=== PATIENT | female | born 2000 | race African-American/Black ===

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

== ENCOUNTER → 2019-09-13 | Outpatient (REF) | payer MEDICAID ==
[~2019-09-13] MED LIST: ADVI200T PO
[2019-09-13 14:14] LABS: HEMATOCRIT 32.8 % (36.0-47.0); HEMOGLOBIN 10.8 g/dl (12.0-15.5); MEAN CORPUSCULAR HEMOGLOBIN 28.9 pg (27.0-33.0); MEAN CORPUSCULAR HGB CONC 32.9 g/dl (32.0-36.5); MEAN CORPUSCULAR VOLUME 87.7 fl (80.0-96.0); PLATELET COUNT, AUTOMATED 311 10^3/uL (150-450); RED BLOOD COUNT 3.74 10^6/uL (4.00-5.40); WHITE BLOOD COUNT 12.3 10^3/uL (4.0-10.0)
[2019-09-13 15:07] LABS: CHLAMYDIA DNA AMPLIFICATION NEGATIVE (NEGATIVE); GC DNA AMPLIFICATION NEGATIVE (NEGATIVE)
[2019-09-13 15:35] LABS: HEPATITIS B SURFACE ANTIGEN NEGATIVE (NEGATIVE); HEPATITIS C VIRUS ABY INDEX 0.1 INDEX (<0.8); HIV 1&2 SCREEN CENTAUR NEGATIVE (NEGATIVE); RUBELLA IgG QUALITATIVE IMMUNE (IMMUNE)
== END ==
LOC: M PLALAB 11:03
PROVIDERS: ATTEND Advanced Practice Midwife
DX: Z34.02 Encounter for supervision of normal first pregnancy, second trimester (principal)

== ENCOUNTER → 2019-10-08 | Outpatient (CLI) | payer MEDICAID ==
--- NOTE | 2019-10-09 09:40 | REP ---
REASON: anatomy. Multiple ultrasonographic images of the gravid uterus show a single living intrauterine gestation in the cephalic presentation. Doppler interrogation of the heart shows a heart rate of 133 beats per minute. The placenta is anterior and not low lying. The subjective amniotic fluid volume is within normal limits. The cervix measures 3.6 cm in length and is closed. Evaluation of the maternal adnexal spaces shows no abnormalities. BPD 6.8 cm = 27 weeks 1 day HC 25.5 cm = 27 weeks 5 days AC 21.6 cm = 26 weeks 0 days FL 5.0 cm = 27 weeks 0 days The estimated weight is 963 grams, which is at the 41st percentile for a 26 week 5 day gestational age. The calculated amniotic fluid index is 14.0 with an expected range 9.6 - 22.5. The anatomical structures seen as unremarkable are as follows: Thalami, cavum septum pellucidum, cerebellum, cisterna magna, cerebral ventricles, kidneys, urinary bladder, upper and lower extremities, three-vessel umbilical cord, cord insertion, stomach, and right ventricular outflow tract. The four-chamber heart, left ventricular outflow tract, and spine were suboptimally visualized. IMPRESSION: Single living intrauterine gestation as described above, with an estimated gestational age of 26 weeks 5 days via composite criteria and an estimated date of delivery of 26 weeks 5 days via composite criteria with an estimated date of delivery of 01/09/2020 by today's exam. No anomalies were detected, however, I recommend a followup examination to visualized those structures not well seen today, as described above.
== END ==
LOC: M WHC 14:00
PROVIDERS: ATTEND Advanced Practice Midwife
DX: Z36.89 Encounter for other specified antenatal screening (principal); Z3A.26 26 weeks gestation of pregnancy

== ENCOUNTER → 2019-10-11 | Outpatient (REF) | payer MEDICAID ==
[2019-10-11 15:31] LABS: HEMOGLOBIN 10.9 g/dl (12.0-15.5); MEAN CORPUSCULAR VOLUME 87.8 fl (80.0-96.0); PLATELET COUNT, AUTOMATED 315 10^3/uL (150-450); RED BLOOD COUNT 3.76 10^6/uL (4.00-5.40)
== END ==
LOC: M PLALAB 11:45
PROVIDERS: ATTEND Advanced Practice Midwife
DX: Z34.02 Encounter for supervision of normal first pregnancy, second trimester (principal)

== ENCOUNTER → 2019-11-05 | Outpatient (CLI) | payer MEDICAID | LOC: M LAB 08:12 | PROVIDERS: ATTEND Advanced Practice Midwife | DX: O99.810 Abnormal glucose complicating pregnancy (principal) ==

== ENCOUNTER → 2019-12-20 | Outpatient (CLI) | payer MEDICAID ==
--- NOTE | 2019-12-20 16:51 | REP ---
Clinical: Growth evaluation. Comparison: 10/08/2019 . Findings: Examination demonstrates a single live intrauterine in cephalic presentation. motion is identified by technologist. Placenta is noted anterior and grade I I I without evidence for placenta previa or abruption. Amniotic fluid volume is normal. Cervix measures 3.1 cm in length and appears closed. No evidence for nuchal cord. Gestational age by LMP 37 weeks 1 day with JEY 01/09/2020 . Gestational age by current measurements 36 weeks 3 days with JEY 01/14/2020 . FHR equals 134 the beats per minute. BPD 9.1 cm 37 weeks 0 days HC 32.2 cm 36 weeks 3 days AC 31.3 cm 35 weeks 2 days FL 7.3 cm 37 weeks 4 days HL 6.5 cm 37 weeks 5-day HC/AC ratio 1.03 Estimated weight 2870 grams ( 39th percentile). Amniotic fluid index: 19.5 cm Impression: Single live advanced gestation in cephalic presentation demonstrating appropriate interval growth. No gross abnormalities are identified. Electronically Signed by Dar Palma MD 12/20/2019 04:43 P
== END ==
LOC: M WHC 16:02
PROVIDERS: ATTEND Advanced Practice Midwife
DX: O26.843 Uterine size-date discrepancy, third trimester (principal); Z3A.37 37 weeks gestation of pregnancy

== ENCOUNTER 2020-01-01 02:45 | Inpatient (IN) | payer MEDICAID ==
[2020-01-01] MEDS ORDERED: OXYTOCIN 30 UNITS IN 0.9% NaCl 500ML IV BAG (J2590) ONE ×2 (03:32→11:22)
[2020-01-01] MEDS ORDERED: PROMETHAZINE INJ 25 MG/ML VIAL (J2550) ONE ×2 (04:31→07:52)
[2020-01-01] MEDS ORDERED: BUTORPHANOL 2 MG/ML INJ (J0595) ONE ×2 (04:31→07:52)
[2020-01-01] MEDS ORDERED: FENTANYL 2MCG/ML ROPIVACAINE 0.2% IN 0.9% NACL 100ML IVBAG ONE (08:36)
[2020-01-01] MEDS ORDERED: ePHEDrine SULFATE 25 MG/5 ML(5MG/ML) SYRINGE ONE (10:21)
[2020-01-01] MEDS ORDERED: AZITHROMYCIN INJ 500MG VIAL (J0456 PER 500MG) ONE (11:04)
[2020-01-01] MEDS ORDERED: BICITRA 30ML SOLN UDC ONE (11:04)
[2020-01-01] MEDS ORDERED: ceFAZolin 2 GM/D5W 50 ML IV BAG (J0690 PER 500MG) ONE (11:04)
[2020-01-01] MEDS ORDERED: LIDOCAINE 2% W/EPINEPHRINE 20ML VIAL **PRES FREE ONE (11:05)
[2020-01-01] MEDS ORDERED: fentaNYL 100 MCG/2 ML INJECTION (J3010) ONE ×2 (11:26→11:43)
[2020-01-01] MEDS ORDERED: ONDANSETRON 4MG/2ML VIAL ONE (11:28)
[2020-01-01] MEDS ORDERED: dexameTHASONE 4 MG/ML 1ML VIAL (J1100 PER 1MG) ONE (11:38)
[2020-01-01] MEDS ORDERED: MORPHINE PRES-FREE INJ 10 MG/10 ML VIAL (J2274) ONE (11:43)
[2020-01-01] MEDS ORDERED: KETOROLAC 60MG 2ML VIAL ONE (11:50)
[2020-01-01] MEDS ORDERED: KETOROLAC 30 MG/ML 1ML VIAL ONE ×2 (17:27→23:43)
[2020-01-02] MEDS ORDERED: KETOROLAC 30 MG/ML 1ML VIAL ONE (05:55)
[2020-01-02] MEDS ORDERED: PERCOCET 5MG/325MG TAB ONE ×2 (12:50→17:28)
[2020-01-02] MEDS ORDERED: FERROUS SULFATE 325MG TAB ONE (20:42)
[2020-01-02] MEDS ORDERED: IBUPROFEN 800 MG TAB ONE (20:43)
[2020-01-03] MEDS ORDERED: PERCOCET 5MG/325MG TAB ONE (05:08)
[2020-01-03] MEDS ORDERED: FERROUS SULFATE 325MG TAB ONE ×2 (09:58→10:08)
[2020-01-03] MEDS ORDERED: ENOXAPARIN 40MG/0.4ML SYRINGE (J1650 PER 10MG) ONE (09:59)
[2020-01-03] MEDS ORDERED: BOOSTRIX/ADACEL VACCINE (DIPHTH/PERTUSS/ACELL/TETANUS) 0.5ML SYR ONE (10:31)
[2020-02-21 20:27] LABS: HEMATOCRIT 33.4 % (36.0-47.0); HEMOGLOBIN 10.6 g/dl (12.0-15.5); MEAN CORPUSCULAR HEMOGLOBIN 25.9 pg (27.0-33.0); MEAN CORPUSCULAR HGB CONC 31.7 g/dl (32.0-36.5); MEAN CORPUSCULAR VOLUME 81.7 fl (80.0-96.0); PLATELET COUNT, AUTOMATED 350 10^3/uL (150-450); RED BLOOD COUNT 4.09 10^6/uL (4.00-5.40); WHITE BLOOD COUNT 12.5 10^3/uL (4.0-10.0)
--- NOTE | 2020-03-09 14:01 | RO ---
PREOPERATIVE DIAGNOSES: * 38 weeks 6 days gestation. * Prelabor rupture of membranes. * Nonreassuring heart rate tracing. POSTOPERATIVE DIAGNOSES: * 38 weeks 6 days gestation. * Prelabor rupture of membranes. * Nonreassuring heart rate tracing. PROCEDURE(S) PERFORMED: Primary low transverse section. SURGEON: Pb Marie DO CAKE WASHER: Laverne June ANESTHESIA: Epidural. SPECIMEN(S) SENT TO PATHOLOGY: None. ESTIMATED BLOOD LOSS: 700 mL. FLUIDS PLACED: 750 mL of lactated ringers. DRAINS: Daugherty catheter. URINE OUTPUT: 150 mL. COMPLICATIONS: None. PREOPERATIVE ANTIBIOTICS: Ancef 2 g (intravenous) IV x1 and azithromycin 500 mg IV x1. INFANT DATA: Male 8 and 9. weight 2920 g. Venous cord gas pH 7.2. Arterial blood gas unable to obtain. INTRAOPERATIVE FINDINGS: * Asynclitic occiput posterior head position. * Normal uterus and bilateral adnexa. INDICATIONS FOR PROCEDURE: Nonreassuring heart rate tracing. DESCRIPTION OF PROCEDURE: The patient was counseled and consented on the risks, benefits, indications, and alternatives to the procedure. Informed consent was obtained. She was taken to the operating room with an IV running and placed on the operating room table in the dorsal supine position with a leftward tilt. A Daugherty catheter was inserted. The patient was prepared and draped in a normal sterile fashion. A time-out was performed per protocol. Epidural anesthesia was found to be adequate. Pfannenstiel skin incision was made and this was carried down to the level of the rectus sheath fascia. The rectus sheath fascia was incised midline and manually. The peritoneum was identified and entered digitally. The peritoneal cavity was accessed and the peritoneum was opened manually with stretch. The Mobius retractor was inserted. Bladder flap was created with Metzenbaum scissors. A low transverse uterine incision was made with a 10-blade and the baby delivered through the hysterotomy without any difficulty. The placenta was removed manually. The hysterotomy was closed with 0-Vicryl in a running locking fashion. This was reinforced with a second imbricating layer using 0-Vicryl. An additional bleeding area along the hysterotomy was reinforced with three [id number] stitches using 3-0 and 0- Vicryl. Excellent hemostasis was achieved. The pelvis was irrigated. Clot and debris were removed from the pericolic gutters. The Mobius retractor was removed. Inspection of the hysterotomy revealed again excellent hemostasis. The peritoneum was closed with 3-0 Vicryl in running fashion. The rectus muscles were reapproximated with 3-0 Vicryl. The rectus sheath fascia was closed with 0- Vicryl in running fashion. The subcutaneous layer was copious irrigated. Small bleeders were cauterized with the Bovie. The subcutaneous layer was reapproximated with 3-0 Vicryl. The skin was reapproximated with 3-0 Monocryl in subcuticular fashion. An Optifoam incision bandage was placed. Sponge, needle, and instrument counts were correct per protocol throughout the case. The patient was transferred to the PACU in good and stable condition. She tolerated the entire procedure well. NEEL
--- NOTE | 2020-03-11 08:00 | DS ---
DATE OF ADMISSION: 01/01/2020 DATE OF DISCHARGE: 01/03/2020 ADMISSION DIAGNOSIS: Pre-labor rupture of membranes at 38 weeks, 6 days. DISCHARGE DIAGNOSIS: Status post primary low transverse section due to non-reassuring heart rate tracing. DISCHARGE SUMMARY: Patient is a 19-year-old, 1, now para 1, who is admitted at 38 weeks and 6 days gestation with a diagnosis of pre-labor rupture of membranes. She was actively managed during the course of her labor and it was complicated by a non-reassuring heart rate tracing when she was 5 cm dilated. The decision was made to proceed for a primary low transverse section. The primary low transverse section was uncomplicated and productive of a baby with scores of 8 and 9 and a weight of 2920 grams. Her postoperative course was uncomplicated. By postoperative day #2, she was meeting all discharge criteria. PHYSICAL EXAMINATION: On the date of discharge: General: Alert and oriented times four. No apparent distress. Heart: Regular rate and rhythm. No murmurs, gallops, rubs. Lungs: Clear to auscultation bilaterally. No wheezes, crackles, rales, rhonchi. Abdomen: Soft, appropriately tender. Fundus is firm at 2 cm below the umbilicus and the uterine fundus is appropriately tender. Normoactive bowel sounds. Nondistended. No guarding. The incision bandage was dry and she is instructed to keep it on for 5 days. Extremities: Nontender. Her hemoglobin and hematocrit showed postoperative anemia with a hemoglobin of 7 and hematocrit of 22, however she was asymptomatic. ASSESSMENT AND PLAN: 19-year-old 1, now para 1, now postoperative day #2 status post primary low transverse section for non-reassuring heart rate tracing. She is meeting all discharge criteria. Routine postoperative instructions to include fever, infectious, pain, and bleeding precautions were reviewed. She is to followup in 2 weeks for an incision check. Her postoperative discharge medications include: - Percocet - [id number] Motrin - Colace MTDD
[2020-03-28 03:57] LABS: CORD GAS HCO3 V 21.2 MEQ/L; CORD GAS PCO2 V 44.4 mmHg; CORD GAS PH V 7.297 UNITS; CORD GAS PO2 V 54.7 mmHg; CORD GAS TCO2 V 22.6 MEQ/L
[2020-03-28 03:58] LABS: CORD GAS ABE V -5.3; CORD GAS O2 SAT V 93.6 %; CORD GAS SBC V 20.1 MEQ/L
[2020-03-28 07:14] LABS: HEPATITIS B SURFACE ANTIGEN NEGATIVE (NEGATIVE)
== END 2020-01-03 11:50 | disposition home or self-care (01) | DRG 540 ==
LOC: M LDI 02:45
PROVIDERS: ADMIT Obstetrics & Gynecology; ATTEND Obstetrics & Gynecology
PROC: 10D00Z1 Extraction of Products of Conception, Low, Open Approach (ICD-10-PCS; principal; 2020-01-01)
DX: O76 Abnormality in fetal heart rate and rhythm complicating labor and delivery (principal); O42.02 Full-term premature rupture of membranes, onset of labor within 24 hours of rupture; Z3A.38 38 weeks gestation of pregnancy; Z37.0 Single live birth

== ENCOUNTER 2020-01-08 19:13 | Inpatient (IN) | payer MEDICAID ==
[~2020-01-08 19:13] MED LIST changes: +LABETALOL 100MG/20ML VIAL ONE; +METOCLOPRAMIDE INJ 10MG/2ML VIAL (J2765 PER 1) ONE
[2020-01-08] MEDS ORDERED: MAGNESIUM SULFATE 1GM/100ML D5W BAG (10MG/ML) ONE (21:23)
[2020-01-09] MEDS ORDERED: LABETALOL 200 MG TAB ONE ×2 (01:44→08:23)
[2020-01-09] MEDS ORDERED: LABETALOL 200 MG TAB As Ordered ONE ×2 (01:44→08:23)
[2020-01-09] MEDS ORDERED: DOCUSATE SODIUM 100 MG CAP ONE ×2 (01:44→08:23)
[2020-01-09] MEDS ORDERED: DOCUSATE SODIUM 100 MG CAP As Ordered ONE ×2 (01:44→08:23)
[2020-01-09] MEDS ORDERED: ACETAMINOPHEN 500 MG TAB As Ordered ONE (01:44)
[2020-01-09] MEDS ORDERED: ACETAMINOPHEN 500 MG TAB ONE (01:44)
[2020-01-09] MEDS ORDERED: NIFEdipine 30 MG XL TAB ONE (08:33)
[2020-01-09] MEDS ORDERED: NIFEdipine 30 MG XL TAB As Ordered ONE (08:33)
[2020-01-09] MEDS ORDERED: MIRALAX *UNIT DOSE* 17GM PACKET As Ordered ONE (14:42)
[2020-01-09] MEDS ORDERED: MIRALAX *UNIT DOSE* 17GM PACKET ONE (14:42)
[2020-01-09] MEDS ORDERED: MAGNESIUM *L&D* 4GM/100ML BAG (40MG/ML) ONE (19:26)
[2020-01-09] MEDS ORDERED: MAGNESIUM SULFATE 4% INJ 20GM/500ML (40MG/ML) ONE (19:26)
--- NOTE | 2020-02-14 15:21 | ECGEPIP ---
[facility] - ED Test Date: 2020-01-08 Pat Name: MAUREEN HARDY Department: Room: [place] [address] Gender: Female Class C Driver: charity : 2000 Requested By: COLLIN Hernández Order Number: [id number] Reading MD: Zenaida Mancia Measurements Intervals [place] Rate: 98 P: 55 VT: 155 QRS: 11 QRSD: 71 T: 4 QT: 333 QTc: 425 Interpretive Statements SINUS RHYTHM NONSPECIFIC T-WAVE ABNORMALITY BORDERLINE ECG SEE SCANNED DOWNTIME REPORT
[2020-02-23 10:19] LABS: HEMATOCRIT 22.4 % (36.0-47.0); MEAN CORPUSCULAR HEMOGLOBIN 26.2 pg (27.0-33.0); MEAN CORPUSCULAR HGB CONC 31.7 g/dl (32.0-36.5); MEAN CORPUSCULAR VOLUME 82.7 fl (80.0-96.0); PLATELET COUNT, AUTOMATED 268 10^3/uL (150-450); RED BLOOD COUNT 2.71 10^6/uL (4.00-5.40); WHITE BLOOD COUNT 20.2 10^3/uL (4.0-10.0)
[2020-02-23 10:20] LABS: HEMOGLOBIN 7.1 g/dl (12.0-15.5)
[2020-02-24 11:56] LABS: INR 0.86; PARTIAL THROMBOPLASTIN TIME 27.1 SECONDS (24.2-38.5); PROTHROMBIN TIME 11.9 SECONDS (12.5-14.3)
[2020-02-24 12:11] LABS: APPEARANCE, URINE HAZY (CLEAR); BACTERIA, URINE AUTO NEGATIVE (NEGATIVE); BILIRUBIN, URINE AUTO NEGATIVE (NEGATIVE); BLOOD, URINE BLOOD 3+ (NEGATIVE); COLOR, URINE YELLOW (YELLOW); GLUCOSE, URINE (UA) AUTO NEGATIVE (NEGATIVE); KETONE, URINE AUTO NEGATIVE (NEGATIVE); LEUKOCYTE ESTERASE, URINE AUTO TRACE (NEGATIVE); MUCUS, URINE SMALL (NEGATIVE); NITRITE, URINE AUTO NEGATIVE (NEGATIVE); PROTEIN, URINE AUTO NEGATIVE (NEGATIVE); RBC, URINE AUTO 2 /HPF (0-3); SPECIFIC GRAVITY URINE AUTO 1.027 (1.002-1.035); SQUAMOUS EPITHELIAL CELL UR AU 4 /HPF (0-6); WBC, URINE AUTO 6 /HPF (0-3)
[2020-02-24 17:18] LABS: BASO % 0.1 % (0.0-1.0); EOS # 0.4 10^3/uL (0.0-0.5); EOS % 3.3 % (0.0-3.0); HEMATOCRIT 27.9 % (36.0-47.0); HEMOGLOBIN 8.3 g/dl (12.0-15.5); LYMPH # 3.6 10^3/uL (1.5-5.0); LYMPH % 33.1 % (24.0-44.0); MEAN CORPUSCULAR HEMOGLOBIN 25.4 pg (27.0-33.0); MEAN CORPUSCULAR HGB CONC 29.7 g/dl (32.0-36.5); MEAN CORPUSCULAR VOLUME 85.3 fl (80.0-96.0); MONO # 0.7 10^3/uL (0.0-0.8); NEUTROPHILS # 6.1 10^3/uL (1.5-8.5); NEUTROPHILS % 56.9 % (36.0-66.0); PLATELET COUNT, AUTOMATED 477 10^3/uL (150-450); RED BLOOD COUNT 3.27 10^6/uL (4.00-5.40); WHITE BLOOD COUNT 10.8 10^3/uL (4.0-10.0)
--- NOTE | 2020-02-25 10:00 | REP ---
CHEST X-RAY: 2-VIEWS HISTORY: Hypertension. FINDINGS: 2-views of the chest are performed. There is no evidence of acute infiltrate. Both lungs are clear. The heart is not significantly enlarged. The mediastinal silhouette is unremarkable. The visualized osseous structures appear intact. IMPRESSION: No active pulmonary disease. MTDD
[2020-02-25 18:29] LABS: HEMATOCRIT 26.7 % (36.0-47.0); HEMOGLOBIN 8.2 g/dl (12.0-15.5); MEAN CORPUSCULAR HEMOGLOBIN 25.8 pg (27.0-33.0); MEAN CORPUSCULAR HGB CONC 30.7 g/dl (32.0-36.5); PLATELET COUNT, AUTOMATED 448 10^3/uL (150-450); RED BLOOD COUNT 3.18 10^6/uL (4.00-5.40); WHITE BLOOD COUNT 10.7 10^3/uL (4.0-10.0)
[2020-03-28 20:27] LABS: ALBUMIN 2.6 GM/DL (3.2-5.2); ALT/SGPT 38 U/L (12-78); BILIRUBIN,DIRECT < 0.1 MG/DL (0.0-0.2); BILIRUBIN,TOTAL 0.2 MG/DL (0.2-1.0); BLOOD UREA NITROGEN 13 MG/DL (7-18); CALCIUM LEVEL 8.7 MG/DL (8.5-10.1); CARBON DIOXIDE LEVEL 26 MEQ/L (21-32); CHLORIDE LEVEL 111 MEQ/L (98-107); CREATININE FOR GFR 0.71 MG/DL (0.55-1.30); GLOMERULAR FILTRATION RATE > 60.0 (>60); GLUCOSE, FASTING 83 MG/DL (70-100); POTASSIUM SERUM 4.6 MEQ/L (3.5-5.1); SODIUM LEVEL 143 MEQ/L (136-145); TOTAL PROTEIN 6.1 GM/DL (6.4-8.2); URIC ACID 5.7 MG/DL (2.6-6.0)
[2020-04-03 23:12] LABS: ALBUMIN 2.6 GM/DL (3.2-5.2); ALT/SGPT 35 U/L (12-78); BILIRUBIN,TOTAL 0.2 MG/DL (0.2-1.0); BLOOD UREA NITROGEN 11 MG/DL (7-18); CALCIUM LEVEL 8.4 MG/DL (8.5-10.1); CARBON DIOXIDE LEVEL 26 MEQ/L (21-32); CHLORIDE LEVEL 109 MEQ/L (98-107); CREATININE FOR GFR 0.65 MG/DL (0.55-1.30); GLOMERULAR FILTRATION RATE > 60.0 (>60); GLUCOSE, FASTING 97 MG/DL (70-100); SODIUM LEVEL 142 MEQ/L (136-145); TOTAL PROTEIN 6.1 GM/DL (6.4-8.2)
== END 2020-01-09 19:27 | disposition home or self-care (01) | DRG 561 ==
LOC: M ED 19:13 → M PCU 23:00
PROVIDERS: ADMIT Specialist; ATTEND Specialist
DX: O14.95 Unspecified pre-eclampsia, complicating the puerperium (principal)

== ENCOUNTER → 2020-06-15 | Outpatient (REF) | payer OTHER, MEDICAID ==
[~2020-06-15] MED LIST changes: -LABETALOL 100MG/20ML VIAL ONE; -METOCLOPRAMIDE INJ 10MG/2ML VIAL (J2765 PER 1) ONE
== END ==
LOC: M LAB REF 12:32
PROVIDERS: ATTEND Nurse Practitioner Family
DX: R03.0 Elevated blood-pressure reading, without diagnosis of hypertension (principal); F41.8 Other specified anxiety disorders; E66.9 Obesity, unspecified; Z13.9 Encounter for screening, unspecified; F17.200 Nicotine dependence, unspecified, uncomplicated

== ENCOUNTER → 2020-09-19 | Outpatient (REF) | payer OTHER, MEDICAID | LOC: M PLALAB 09:08 | PROVIDERS: ATTEND Obstetrics & Gynecology | DX: Z12.4 Encounter for screening for malignant neoplasm of cervix (principal) ==